=== PATIENT | female | born 1985 | race African-American/Black ===

== ENCOUNTER 2021-03-21 13:05 | Emergency (ER) | payer MEDICAID, OTHER ==
[~2021-03-21] VITALS: Ht 167 cm; Wt 64.0 kg
[2021-03-21] MEDS ORDERED: PROCHLORPERAZINE 10 MG/2ML INJ (COMPAZINE) IV ONE (13:45)
[2021-03-21] MEDS ORDERED: NS IV 1000 ML 1,000 ML IV SCH (13:45)
[2021-03-21] MEDS ORDERED: KETOROLAC 30 MG/ML VIAL IVP ONE (13:45)
[2021-03-21] MEDS ORDERED: diphenhydrAMINE 50 MG/ML INJ (BENADRYL) IV ONE (13:45)
--- NOTE | 2021-03-21 13:50 | ED General ---
General Chief Complaint: Neurological Problems Stated Complaint: MIGRAINE Nursing Triage Note: THE PT IS AMBULATORY TO THE ROOM WITHOUT DIFFICULTY. NO DISTRESS IS SEEN ON ARRIVAL LOC IS NORMAL FOR THE PT. THE PT C/O OF A HEADACHE. Source of Information: Patient Exam Limitations: No Limitations History of Present Illness Date Seen by Provider: Mar 21, 2021 Time Seen by Provider: 13:20 Initial Comments Patient is a 35-year-old female who presents to the emergency department today with a gradual development of severe frontal headache over the course of the last 48 hours. Patient states that she has had previous headaches like this before and has had 1 or 2 ER visits for headache before. She denies any fevers chills, earache sore throat runny nose or congestion. No Covid complaints or concerns. Patient states she has been taking Excedrin Migraine without any relief of symptoms. She states her significant other brought her to the hospital today. She states that noises make her headache worse. She is nauseous without vomiting. No other complaints of illness or injury. All other review of systems reviewed and negative except as stated above. Timing/Duration: 1-2 Days Severity: Severe Associated Systoms: Other (right arm pain) Allergies and Home Medications Allergies Coded Allergies: No Known Drug Allergies (Unverified , 03/21/21) Patient Home Medication List Home Medication List Reviewed: Yes Review of Systems Review of Systems Constitutional: see HPI EENTM: no symptoms reported Respiratory: no symptoms reported Cardiovascular: no symptoms reported Gastrointestinal: no symptoms reported Genitourinary: no symptoms reported : No Musculoskeletal: muscle pain (right arm), muscle stiffness Skin: no symptoms reported Psychiatric/Neurological: Headache All Other Systems Reviewed Negative Unless Noted: Yes Physical Exam Vital Signs Vital Signs - First Documented 03/21/21 13:16 Temp 37.6 Pulse 85 Resp 16 B/P (MAP) 99/70 (80) Capillary Refill : Less Than 3 Seconds Height, Weight, BMI Height: '" Weight: lbs. oz. kg; 22.00 BMI Method: General Appearance: WD/WN, Moderate Distress Eyes: Bilateral Eye Normal Inspection, Bilateral Eye PERRL, Bilateral Eye EOMI HEENT: PERRL/EOMI, Normal ENT Inspection, Pharynx Normal Neck: Full Range of Motion, Normal Inspection, Non Tender, Supple Respiratory: Lungs Clear, Normal Breath Sounds, No Accessory Muscle Use, No Respiratory Distress Cardiovascular: Regular Rate, Rhythm Gastrointestinal: Non Tender, Soft Extremity: Normal Capillary Refill, Normal Inspection, Normal Range of Motion, Non Tender, No Calf Tenderness Neurologic/Psychiatric: Alert, Oriented x3, No Motor/Sensory Deficits, Normal Mood/Affect Skin: Normal Color, Warm/Dry Progress/Results/Core Measures Suspected Sepsis SIRS Temperature: Pulse: 85 Respiratory Rate: 16 Blood Pressure 99 /70 Mean: 80 Results/Orders My Orders Orders - RENU SERRANO MD Ed Iv/Invasive Line Start (03/21/21 13:44) Ketorolac Injection (Toradol Injection) (03/21/21 13:45) Prochlorperazine Injection (Compazine In (03/21/21 13:45) Diphenhydramine Injection (Benadryl Inje (03/21/21 13:45) Ns Iv 1000 Ml (Sodium Chloride 0.9%) (03/21/21 13:45) Medications Given in ED Current Medications Medications Dose Ordered Sig/Rafi Route Start Time Stop Time Status Last Admin Dose Admin Diphenhydramine HCl 25 mg ONCE ONCE IV 03/21/21 13:45 03/21/21 13:46 DC 03/21/21 14:08 25 MG Ketorolac Tromethamine 30 mg ONCE ONCE IVP 03/21/21 13:45 03/21/21 13:46 DC 03/21/21 14:10 30 MG Prochlorperazine Edisylate 10 mg ONCE ONCE IV 03/21/21 13:45 03/21/21 13:46 DC 03/21/21 14:12 10 MG Vital Signs/I&O 03/21/21 13:16 Temp 37.6 Pulse 85 Resp 16 B/P (MAP) 99/70 (80) Capillary Refill : Less Than 3 Seconds Blood Pressure Mean: 80 Progress Note : Time: 14:53 Progress Note Notified by the nurse that patient pulled her own IV out, states that she feels much better and is ready for discharge. Medications were given and 1 L of fluids were given. Patient has no clinical or objective findings to warrant further studies or medication here in the emergency department. She is recommended to take [id number] Excedrin Migraine or ibuprofen as needed for headache. All questions have been sought and answered. Patient is stable for discharge. I did go back to reevaluate the patient prior to discharge and found that she had eloped from the department without her discharge instructions. Departure Impression Primary Impression: Migraine headache Qualified Codes: G43.009 - Migraine without aura, not intractable, without status migrainosus Disposition: HOME, SELF-CARE Condition: Improved Departure-Patient Inst. Decision time for Depature: 14:54 Referrals: [facility] [place],LOCAL PHYSICIAN (PCP) Primary Care Physician Patient Instructions: Migraines in Adults Add. Discharge Instructions: Drink plenty of fluids to stay well-hydrated. You can take [id number] Excedrin Migraine or ibuprofen, 3 tablets which is 600 mg, every 6 hours as needed with food for headache pain. Come back to the emergency department if you have any new, concerning or emergent complaints. RENU Anderson MD Mar 21, 2021 13:49
[2021-03-21 14:57] VITALS: BP 99/70
== END 2021-03-21 15:03 | disposition home or self-care (01) ==
LOC: ER 13:07
DX: G43.909 Migraine, unspecified, not intractable, without status migrainosus (principal)
CPT/HCPCS: 99283